=== PATIENT | female | born 1980 | race Caucasian/White ===

== ENCOUNTER 2016-06-14 23:41 | Inpatient (IN) | payer BC ==
[~2016-06-14] VITALS: Ht 157.5 cm; Wt 72.0 kg
[~2016-06-14 23:41] MED LIST: ARMOUR THYROID15 MG PO; ARMOUR THYROID90 MG PO
[2016-06-15] VITALS (29 sets, daily range): BP systolic 112–161; BP diastolic 53–85
[2016-06-15 05:10] LABS: EOSINOPHIL (%) 0.3 % (0-5); HEMATOCRIT 38.1 % (36.0-46.0); IMMATURE GRANULOCYTE (%) 0.4 % (0.0-0.7); INSTRUMENT ABS NEUTROPHIL CT 8.4 K/uL; LYMPHOCYTE COUNT 2.1 K/uL (1.0-2.8); MCH 30.5 PG (29.0-34.0); MCHC 34.1 G/DL (30.0-36.0); MCV 89.4 FL (83-99); MEAN PLAT.VOLUME 13.7 uM^3 (9.5-12.4); MONOCYTE (%) 6.6 % (3-12); MONOCYTE COUNT 0.8 K/uL (0-0.8); NEUTROPHIL (%) 74.3 % (45-76); NEUTROPHIL COUNT 8.4 K/uL (1.8-6.4); PLATELET COUNT 166 K/uL (156-360); RBC DIS.WIDTH-CV 13.5 % (11.8-14.6); RBC DIS.WIDTH-SD 43.8 % (39-53); RED BLOOD COUNT 4.26 M/uL (3.80-5.20); WHITE BLOOD COUNT 11.3 K/uL (4.1-10.2)
[2016-06-15] MEDS ORDERED: SYNTHROID150 MCG PO (06:33)
[2016-06-15] MEDS ORDERED: VALTREX1000 MG PO (06:33)
[2016-06-15] MEDS ORDERED: PRENATAL VITAM1 EA11 PO (06:34)
[2016-06-15] MEDS ORDERED: ENDOCET 5-3251 EACH PO (20:36)
[2016-06-15] MEDS ORDERED: IBUPROFEN800 MG PO (20:36)
[2016-06-16 05:12] LABS: EOSINOPHIL (%) 0.1 % (0-5); HEMATOCRIT 31.1 % (36.0-46.0); IMMATURE GRANULOCYTE (%) 0.5 % (0.0-0.7); IMMATURE GRANULOCYTE COUNT 0.1 K/uL; INSTRUMENT ABS NEUTROPHIL CT 11.8 K/uL; LYMPHOCYTE COUNT 1.9 K/uL (1.0-2.8); MCH 30.3 PG (29.0-34.0); MCHC 34.1 G/DL (30.0-36.0); MCV 88.9 FL (83-99); MEAN PLAT.VOLUME 13.3 uM^3 (9.5-12.4); MONOCYTE COUNT 0.9 K/uL (0-0.8); NEUTROPHIL (%) 80.4 % (45-76); NEUTROPHIL COUNT 11.8 K/uL (1.8-6.4); PLATELET COUNT 130 K/uL (156-360); RBC DIS.WIDTH-CV 13.6 % (11.8-14.6); RBC DIS.WIDTH-SD 43.7 % (39-53)
[2016-06-16 05:13] LABS: WHITE BLOOD COUNT 14.7 K/uL (4.1-10.2)
[2016-06-16 07:27] VITALS: BP 111/64
[2016-06-16 15:19] VITALS: BP 123/71
[2016-06-16 23:56] VITALS: BP 119/67
[2016-06-17 07:25] VITALS: BP 137/72
[2016-06-17 15:30] VITALS: BP 136/73
== END 2016-06-17 22:18 | disposition home or self-care (01) | DRG 774 ==
LOC: LDRP-OP 23:41 → 2WEST 23:42 → LDRP-OP 07-12 15:29
PROVIDERS: Advanced Practice Midwife; Obstetrics & Gynecology
PROC: 10907ZC Drainage of Amniotic Fluid, Therapeutic from Products of Conception, Via Natural or Artificial Opening (ICD-10-PCS; principal; 2016-06-15)
PROC: 3E033VJ Introduction of Other Hormone into Peripheral Vein, Percutaneous Approach (ICD-10-PCS; principal; 2016-06-15)
PROC: 10D07Z3 Extraction of Products of Conception, Low Forceps, Via Natural or Artificial Opening (ICD-10-PCS; principal; 2016-06-15)
PROC: 3E0R3CZ (ICD-10-PCS; principal; 2016-06-15)
PROC: 00HU33Z Insertion of Infusion Device into Spinal Canal, Percutaneous Approach (ICD-10-PCS; principal; 2016-06-15)
PROC: 0KQM0ZZ Repair Perineum Muscle, Open Approach (ICD-10-PCS; principal; 2016-06-15)
DX: O66.5 Attempted application of vacuum extractor and forceps (principal); O70.1 Second degree perineal laceration during delivery; O69.1XX0 Labor and delivery complicated by cord around neck, with compression, not applicable or unspecified; O98.32 Other infections with a predominantly sexual mode of transmission complicating childbirth; A60.09 Herpesviral infection of other urogenital tract; Z37.0 Single live birth; Z3A.40 40 weeks gestation of pregnancy; O99.284 Endocrine, nutritional and metabolic diseases complicating childbirth; E03.9 Hypothyroidism, unspecified; O99.02 Anemia complicating childbirth; D57.3 Sickle-cell trait
CPT/HCPCS: 85025; 85027; 87070; 87075; 87205; C1755; G0378; J0595; J3010; J7120